=== PATIENT | female | born 1950 | race African-American/Black ===

== ENCOUNTER 2018-06-01 13:46 | Inpatient (IN) | payer OTHER ==
[~2018-06-01] VITALS: Ht 157.5 cm; Wt 77.3 kg
[2018-06-01 14:33] VITALS: BP 137/97
--- NOTE | 2018-06-01 17:03 | NUR ---
I attempted to call medicare ROSENDO Shipman [phone]. I received a voice message saying the office was closed.
[2018-06-01 17:05] LABS: ABSOLUTE NEUTROPHILS 3.9 thou/uL (1.4-8.2); BASOPHILS 0.6 % (0.0-2.0); EOSINOPHILS 1.2 % (0.0-3.0); HEMATOCRIT 42.8 % (37.0-47.0); HEMOGLOBIN 14.4 gm/dL (12.0-15.0); LYMPHOCYTES 31.4 % (24.0-44.0); MCH 31.5 pg (26.0-34.0); MCHC 33.5 g/dL (28.0-37.0); MONOCYTES 7.1 % (1.0-8.0); PLATELET COUNT 290 thou/uL (150-400); POLYS 59.7 % (36.0-66.0); RBC 4.56 mil/uL (4.20-5.00); RDW 13.4 % (10.5-14.5); WBC 6.6 thou/uL (4.0-11.0)
[2018-06-01 17:19] LABS: ALBUMIN 3.6 g/dL (3.4-5.0); CALCIUM 8.9 mg/dL (8.5-10.1); CREATININE 1.1 mg/dL (0.6-1.0); MAGNESIUM 2.4 mg/dL (1.8-2.4); POTASSIUM 3.2 mmol/L (3.5-5.1); TOTAL BILIRUBIN 0.4 mg/dL (<0.1-1.0); TOTAL PROTEIN 7.5 g/dL (6.4-8.2)
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
[2018-06-01 17:45] LABS: TSH 0.408 uIU/mL (0.358-3.740)
[2018-06-01 21:18] VITALS: BP 149/74
--- NOTE | 2018-06-01 21:51 | NUR ---
ASSUMED CARE OF PATIENT AT 1915 AFTER VERBAL REPORT PROVIDED BY OUTGOING RN. INTRODUCED SELF TO PATIENT AND ASSESSED NEEDS. PROVIDED APPLE JUICE AT BEDSIDE FOR HYDRATION NEEDS. PRESENTS IRRITABLE, CURSING AT STAFF, YELLING FROM HOSPITAL BED, CALLING STAFF NAMES AT TIMES, "THOSE BITCHES". APPEARS DELUSIONAL, MAKING SEVERAL STATMENTS OF PEOPLE, "STEALING MY MONEY THAT WAS IN MY BRA". POSSIBLE VISUAL HALLUCINATIONS MAKING SEVERAL STATEMENTS OF "THEY JUST CAME IN MY ROOM. DID YOU SEE THEM?" VERBALLY DENIES CURRENT VISUAL HALLUCINATIONS, SUICIDAL IDEATIONS STATING "I LOVE GOD AND MINE". POSSIBLE HOMICIDAL IDEATIONS STATING "I WILL GUT WHOEVER TRIES TO TAKE FROM ME", WHILE DOING A SLICING MOTION UPWARD. RETIREMENT AND SHORT TERM MEMORY IMPAIRED, PATIENT REPEATS THE SAME QUESTIONS WITHIN A FEW MINUTES OF ASKING THEM. LABILE WITH PERIODS OF VERBAL AGITATION TO PERIODS OF SMILING WITH AND SPEAKING TO STAFF APPROPRIATELY. PER REPORT PATIENT HAS NO SKIN ISSUES AND IS CONTINENT WITH BOWEL AND BLADDER. FALL RISK IS HIGH AND ASSIST X 1 WITH WHEELCHAIR FOR AMBULATION. PATIENT HAS A CANE THAT IS LOCKED WITH HER BELONGINGS FOR STAFF SAFETY. PER TRANSFER PAPERWORK PATIENT HAS A HISTORY OF CHRONIC BACK PAIN AND TAKES NORCO 5/325MG PO Q SIX HOURS PRN FOR PAIN. PT REPORTS BACK PAIN "HURTS LIKE HELL" WITH NO NUMERCIAL NUMBER PROVIDED. FACIAL GRIMACING NOTED WHEN MOVING IN BED. NO CURRENT ORDERS FOR PAIN MEDICATIONS AT THE TIME OF ASSESSMENT, CONTACTED , VIA CELL PHONE, PROVIDED REPORT ON PATIENTS PAIN, NICOTINE REPLACEMENT PER PATIENT REQUEST, AND DNR ORDERS PER TRANSFER PAPERWORK. NEW ORDERS RECEIVED FOR NICOTINE REPLACEMENT STARTING IMMEDIATELY PER PATIENT REQUESTS, ADDITIONAL DOSE OF 50MG SEROQUEL x 1 TO ASSIST WITH CURRENT AGITAITON, DELUSIONS AND SLEEP, AND NORCO 5/325MG x 1 NOW FOR PAIN. CON[facility]ED [facility] FOR COPIES OF DNR PAPERWORK, POA AND ASSESSMENT ON PATIENTS PAIN MEDICATION HISTORY. AWAITING COPIES OF PAPERWORK TO BE SENT VIA FAX. ORDER RECEIVED FROM DR. MOONEY FOR DNR DURING ANY MEDICAL CODE, ORDER READ BACK AND DICTATED. HYPERTENSION THIS EVENING WITH SCHEDULED HTN MEDICATION ADMINISTERED, SEE ORDER. VERBALLY DENIES ANY SOA, HEADACHE, OR ANY ADDITIONAL UNMET NEEDS. ALERT AND ORIENTED TO SELF ONLY. WILL CONTINUE TO MONITOR PT PER PHYSICIANS ORDERS AND FOR ANY ADDITIONAL UNMET NEEDS. ATTEMPTED TO CONTACT DPOA, SUDEEP POSADA, TO RECEIVE VERBAL CONSENT FOR ADMISSION. VOICEMAIL LEFT AND WILL FOLLOW UP.
--- NOTE | 2018-06-02 02:05 | NUR ---
PT HEARD YELLING IN BED FROM NURSES STATION STATING "GET OUT OF HERE AND CLOSE THE DAMN DOOR". THIS NURSE CHECKED ON PATIENT IN ROOM, LAYING IN BED WITH EYES OPEN, SPEAKING TO UNSEEN OTHERS IN ROOM, STATING "I AM TALKING TO MY SON AND TRYING TO SLEEP". EYES REMAINED CLOSED DURING ASSESSMENT WITH SOFT SPOKEN SLIGHTLY SLURRED SPEECH. NO SIGNS OF DISTRESS REPORTED OR ASSESSED. APPEARS TO BE RESTING PEACEFULLY WITH NO CURRENT SIGNS OF DISTRESS OBSERVED OR REPORTED. RR EVEN AND UNLABORED. WILL CONTINUE TO MONITOR CLOSELY PER PHYSICIAN ORDERS FOR SAFETY AND ANY ADDITIONAL UNMET NEEDS. CONTINUES WITH Q 15 MINUTE ROUNDS PER ORDER. CONTACTED [facility] AND SPOKE TO DANIEL, CURRENT NURSE AT [facility]. .
--- NOTE | 2018-06-02 05:00 | NUR ---
PT HAD A GOOD SHIFT, SLEEPING WELL OVERNIGHT, AFTER ADMINISTRATION OF SEROQUEL PER PHYSICIANS ORDER, SEE MAR. AWOKE ONLY ONCE DUE TO A/V HALLUCINATIONS STATING "I AM TALKING TO MY SON AND HE NEEDS TO SHUT MY DOOR". NO REPORTS OR OBSERVATIONS OF ANY STRUGGLES GETTING BACK TO SLEEP. NURSE PRACTITIONER Clara ORTIZ PROVIDED REPORT ON HYPOKALEMIA OF 3.2, SEE LABS, AND NEW ORDER RECEIVED FOR 40 MEQ POTASSIUM PO x 1 DOSE, ORDER REPEATED, DICTATED, AND VERIFIED PER POLICY. WILL CONTINUE TO MONITOR PT CLOSELY FOR SAFELY, Q 15 MINUTES, PER PHYSICIANS ORDERS, FOR SAFETY AND ANY ADDITIONAL UNMET NEEDS.
--- NOTE | 2018-06-02 08:22 | NUR ---
ASSUMED CARE OF PATIENT AT 0715 A.M. PATIENT LYING IN BED, SUPINE POSITION, RESTING QUIETLY WITH EYES CLOSED. NO BEHAVIOR DISCREPANCIES AT THIS TIME. CONTINUE TO MONITOR.
[2018-06-02 11:16] VITALS: BP 128/77
--- NOTE | 2018-06-02 12:10 | NUR ---
NEW ORDER AT APPROXIMATELY 1040 AM: NURSING STAFF TO REMOVE NECK SCARF FROM PATIENT FOR SAFETY REASONS.
--- NOTE | 2018-06-02 15:52 | NUR ---
Pt is ia 68 year old who was referred to [facility] from [facility] due to visual hallucinations and aggressive behaviors. Pt was not coherent to complete psychosocial assessement and collateral information was obtained from her daughter, Frederick who is also her DPOA. Frederick spoke with SW over the phone as nurse Isabella was also present and she gave verbal consent to treat her mother. ANGEL provided Frederick with our fax number to fax DPOA document for pt record. Frederick agreed that she will follow through as discussed. Frederick acted on Pt's behalf and completed assessement with SW over the phone. Frederick reported that Pt has been having some issues at the care home. She can be really aggressive at times. Horacevictoriano reported that Pt was taken to [facility] (either end of last year or earlier this year) after havisng severe visual hallucinations. Pt was monitored for four days and was discharged back to the care home. Frederick stated that Pt was diagnosed with demantia/Alzheimer by her primary care physician in 2014, however, Pt has never receive outpatient treatment for mental health. Pt also has a history of marijuiana and alcohol use, per Frederick and still has desire to use. Horacevictoriano indicated that Pt's sisters will be involved in her treatment plan as she recently moved to [place] and will not be present to attend meeting. She however, stated that she will be in communication with staff as needed to provive necrssary information. ANGEL will continue to monitor and assess pt for furnther needs during her hospitalization.
--- NOTE | 2018-06-02 15:55 | NUR ---
PATIENT WAS MOVED TO ROOM 521A RT PATIENT HAVING RIGHT SIDED ACCESS TO GRAB BAR TO STOOL AND SINK.
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
--- NOTE | 2018-06-02 16:18 | NUR ---
Cristian attempted to contact Pt insurance at 9:40 Am and the message stated the office is currently closed.CRISTIAN contacted group home at [phone] and spoke with Alicia and another staff requesting Pt's physical history per Dr. Ramachandran request. CRISTIAN provided our fax number to fax the requested information when ready.
--- NOTE | 2018-06-02 17:41 | NUR ---
NOTE: PATIENT HAD REFUSED NICOTINE PATCH AT 0900, STATED THAT SHE HAD NO PROBLEM WITH NEEDING NICOTINE AT THAT TIME. HOWEVER, LATE IN THE AFTERNOON AROUND 1715, PATIENT BECAME INCREASINGLY VERBALLY AGITATED RE: NOT BEING ABLE TO SMOKE. SHE ACCEPTED NICOTINE PATCH AT THAT TIME (NURSE CONTACTED PHAARMACY, WHO ACTIVATED ORDER AGAIN SO THAT IT COOULD BE APPLIED.) Emelia DE LA ROSA, REPORTED TO NURSE THAT PATIENT JUST STATED TO HER THAT NICOTINE PATCH HAS MADE HER HALLICUNATE IN THE PAST. REPORTED TO Gi.Tanmay THAT NURSE HAD NOT PLACED ON HER YET, WHICH WAS NOT ACCURATE. NICOTINE PATCH IS IN PLACE ON PATIENT'S RIGHT POSTERIOR NECK.
[2018-06-02 20:18] VITALS: BP 146/81
[2018-06-02 20:34] LABS: URINE BILIRUBIN NEGATIVE (Negative); URINE BLOOD NEGATIVE (Negative); URINE CLARITY CLEAR; URINE COLOR YELLOW; URINE GLUCOSE-RANDOM* NEGATIVE (Negative); URINE KETONES NEGATIVE (Negative); URINE LEUKOCYTES-REFLEX 1+ (Negative); URINE NITRITE-REFLEX NEGATIVE (Negative); URINE PROTEIN (DIPSTICK) NEGATIVE (Negative); URINE UROBILINOGEN 0.2 E.U./dl (0.2-1.0)
[2018-06-02 20:39] LABS: AMP/METHAMP Negative (Negative); BARBITURATES Negative (Negative); BENZODIAZEPINES Negative (Negative); COCAINE Negative (Negative); METHADONE Negative (Negative); OPIATES Negative (Negative); PCP Negative (Negative)
[2018-06-02 20:55] LABS: SQUAMOUS 0-3 Few /LPF (0-3)
[2018-06-02 20:56] LABS: BACTERIA-REFLEX None Seen /HPF (None Seen); CASTS None Seen /LPF (None Seen); CRYSTALS None Seen /LPF (None Seen); URINE RBC 0-2 Rare /HPF (0-2); URINE WBC-REFLEX 0-5 Rare /HPF (0-5)
--- NOTE | 2018-06-03 04:46 | NUR ---
RESUMED PATIENT CARE 06/02/2018 AT APPROXIMATELY 0715. RECEIVED VERBAL REPORT FROM VICTORIANO LOCK. INTRODUCED SELF TO THE PATIENT AND ASSESSED NEEDS. PATIENT REPORTS "I AM FREEZING". PROVIDED PATIENT WITH WARMED BLANKETS AND PATIENT WAS VERY HAPPY, SMILING, AND SINGING TO THE NURSE AND THE NURSES AID THIS MORNING. PT ASSISTED OUT TO THE DAY AREA WHERE , i UNDERSTAND THAT"
--- NOTE | 2018-06-03 06:00 | NUR ---
ASSUMED PATIENT CARE 06/02/18 AT APPROXIMATELY 1915. RECEIVED VERBAL REPORT FROM VICTORIANO LOCK. NOTIFIED PATIENT OF SHIFT CHANGE, INTRODUCED MYSELF AND ESTRELLA JERRY TO PATIENT. PRESENTS ALERT AND ORIENTED TO SELF AND SITUATION AT TIMES. THOUGHTS SEEMED TO BE MORE CLEAR LAST hs AND THROUGHOUT THE OVERNIGHT WITH PATIENT MAKING SEVERAL STATEMENTS "AM i HERE BECAUSE OF THE HALLUCINATIONS. THAT WAS SO SCARY." APPEARANCE IS GOOD, RECEIVED SPONGE BATH 06/02/18 IN THE EVENING. APPETITE IS GOOD CONSUMING ALL OF HER EVENING SNACK AND CONSUMING WATER WITH NO ICE DUE TO TEETH SENSITIVE TO COLD. VERBALLY DENIES CURRENT PAIN STATING "I FEEL GREAT. I DON'T EVEN NEED A CIGARETTE". REFUSED TO REMOVE NICTOINE PATCH PRIOR TO BED STATING "I NEED THIS PAPA". MEDICATION COMPLIANT WITH SCHEDULED HS MEDICATIONS. NEW MEDICATION DEPAKOTE 750MG ORDERED LAST HS. CONTACTED PHARMACIST DUE TO HEPATITIS C DIAGNOSIS, AGE AND FIRST TIME DOSE AMOUNT IS HIGH. DR. MOONEY ORDERED TO CONTINUE WITH SCHEDULED DOSAGE OF DEPAKOTE AND MONITOR PT FOR ANY SIDE EFFECTS. PATIENT COMPLIANT WITH SCHEDULED HS MEDICATIONS. NO OUTBURSTS THIS SHIFT. IMPULSIVE. EASILY VERBALLY REDIRECTABLE TO ACTIVITES. LAST BOWEL MOVEMENT PER REPORT 06/02/18 LARGE NORMAL CONSISTENCY. THROUGHOUT THE EVENING HER CONFUSION SEEMED TO INCREASE. EASILY REDIRECTABLE AND ORIENTED TO ROOM AND LOCATION. EFFECTIVE FOR SHORT PERIODS WITH FREQUENT REMINDERS AND REORIENTATION NEEDED. THIS MORNING ON APPROXIMATELY 0515 PATIENT ATTEMPTED TO AMBULATE OUT OF BED WITH REPORTS OF FEELING "REALLY STIFF". REQUIRED MODERATE TO MAX ASSIST x 1 PATIENT REPORTS DIFFICULTY MOVING LEGS, SEEMED TO BE SHUFFLING HER FEET AND STIFF. VERBALLY DENIES CHEST PAIN AND OR DISCOMFORT. NO MORE CONFUSION OBSERVED SINCE LAST HS. CONTACTED PHARMACIST AND NOTIFIED OF NEW SIDE EFFECT. COULD POSSIBLY BE EPS SYMPTOMS RELATED TO DEPAKOTE. WILL NOTIFY PHYSICIAN OF SYMPTOMS. VERBALLY DNEIES ANY FURTHER NEEDS AT THIS TIME. HELD MORNING DOSE OF GABAPENTIN DUE TO FEELINGS OF STIFFNESS AND "REALLY FEELING TIRED".
[2018-06-03 07:52] VITALS: BP 130/78
--- NOTE | 2018-06-03 07:53 | NUR ---
RECEIVED PT APPROX 0700. PT A/O/CALM AND APPROPRIATE THIS AM. DENIES PAIN WHEN ASKED. NO NOTED SOA. PT IN DINING ROOM WITH THERAPIST AT THIS TIME. WILL CONT. TO MONITOR.
--- NOTE | 2018-06-03 08:33 | NUR ---
MEDICATIONS GIVEN ORDERED- PT TOLERATED WELL. REFUSED MIRALAX THIS AM STATED "I DON'T WANT TO HAVE DIARRHEA, IM PRETTY REGULAR". PT RESTING IN WC AT THIS TIME APPEARS COMFORTABLE/CALM. DENIES NEEDS AT THIS TIME. WILL CONT. TO MONITOR.
--- NOTE | 2018-06-03 09:43 | NUR ---
PT RESTING IN BED AT THIS TIME. PLEASANT AND COOPERATIVE WITH CARES. BED ALARM ON. WILL CONT. TO MONITOR.
--- NOTE | 2018-06-03 10:16 | NUR ---
PT BACK IN DINING ROOM AT THIS TIME. SINGING AND LISTENING TO MUSIC.
--- NOTE | 2018-06-03 13:27 | NUR ---
PT IN DINING ROOM AT THIS TIME. ATE 100% OF LUNCH. NOTED AGITATION AT TIMES LOOKING FOR HER MONEY. NOTED PT BEING FORGETFUL AT TIMES WELL. REDIRECTABLE. WILL CONT. TO MONITOR.
--- NOTE | 2018-06-03 14:11 | NUR ---
ANGEL met with Pt at bedside briefly this AM at 9:15-9:35 and socialized with her. Pt appeared to be in a good mood and asked SW where she was at. SW informed Pt that she was at [facility]. Pt stated that she wasn't aware she was even in the hospital. Pt reported that she is feeling better today and had a good day as well yesterday, but feeling sleepy and tired. Pt talked about her children and her sisters. Pt stated that they are very closed and had a lot of fun growing up and even when they got older before she got sick. Pt laughed while talking about family memories and stated that her sisters will stop by to check on her. SW reminded Pt that two of her sisters visisted her and that her daughter Frederick stated she will not be visiting due to her recent move to [place]. Pt nodded her head in agreement and stated "she's my baby". SW noticed that Pt was trying to keep her eyes open. ANGEL thanked Pt for the meeting and reminded her that SW will be on shift most of the day should she have any questions, she can speak with SW later. SW left the room at the end of the meeting. SW will continue to monitor Pt and assess futher needs if necessasy.
--- NOTE | 2018-06-03 14:25 | NUR ---
PT IN ROOM AT THIS TIME. APPEARS RESTING WITH EYES CLOSED. BED ALARM ON.
[2018-06-03 17:00] VITALS: BP 147/80
--- NOTE | 2018-06-03 18:36 | NUR ---
PT MORE FORGETFUL THIS EVENING AND EASILY AGITATED. STATING SHE WANTS TO SMOKE. REDIRECTED/REORIENTED. PT UP WALKING WITH ACCESS DATABASE DEVELOPER AT THIS TIME. UNEVENTFUL DAY. WILL CONT. TO MONITOR.
[2018-06-03 19:22] VITALS: BP 160/95
--- NOTE | 2018-06-03 19:25 | NUR ---
ASSUMED PATIENT CARE AT APPROXIMATELY 1900. PATIENT OUT OF BED TO COMMON AREA, IN WHEELCHAIR, WITH A IRRITABLE PRESENTATION, FROWNING, CURSING STATING "I NEED TO GET OUT OF THIS HELL HOLE. I DIDN'T WANT TO COME HERE TODAY". PT ORIENTED TO SELF ONLY, STATING "I AM AT THE STORE BY MY HOUSE OR THE [employer]". ATTEMPTED TO ORIENT PATIENT TO UNIT AND REASON FOR ADMISSION WITH SUCCESS FOR ONLY SHORT PERIODS OF TIME. PRESENTS MORE AGITATED AND CONFUSED THIS EVENING COMPARED TO YESTERDAY EVENING. NOT ABLE TO RECALL REASON FOR ADMISSION. REPORTS VISUAL HALLUCINATIONS STATING "WHERE DID THAT SISTER GO THAT WAS HERE EARLIER?" NO SISTER HAS BEEN ON THE UNIT AND PT HAD NO VISITORS PER REPORT. APPEARANCE IS SLIGHTLY UNKEMPT THIS EVENING, WEARING THE SAME CLOTHES SINCE YESTERDAY, ALSO SLEPT IN THE CLOTHES, AND WEARING HER RED KNITTED HAT WITH A STRAW IN HER EAR. ATTEMPTED TO PROVIDE HYGIENE CARE TO PATIENT INCLUDING CHANGING CLOTHES, ASSISTED SHOWER, AND ORAL HYGIENE WITHOUT SUCCESS PATIENT STATING "I SAID NO I DON'T AND WON'T. YOU ARE ANNOYING ME AND NEED TO JUST LEAVE ME ALONE". PER REPORT PATIENT HAS BEEN MEDICATION COMPLIANT WITH ALL MEDICATION THROUGHOUT THE MORNING AND AFTERNOON SHIFT. DIFFICULT TO VERBALLY REDIRECT, CURSING, POSTURING, DEMANDING TO LEAVE". CONTACTED PHYSICIAN PER PHONE AND PROVIDED REPORT ON PATIENTS CURRENT IRRITBILITY AND ESCALATION. NEW ORDER RECEIVED FOR ADDITIONAL SEROQUEL 25MG PO X 1 NOW. WILL CONTINUE TO MONITOR PT FOR EFFECTIVENESS OF MEDICATION.
--- NOTE | 2018-06-03 20:28 | NUR ---
PT IN DINING AREA POSTURING AT LINE REPAIRER TOWER CLARITZA STATING "GET THE FUCK OUT OF HERE. YOU ARE ANNOYING", WHILE HOLDING ONTO HER WALKER IN HER RIGHT HAND. ATTEMPTED TO PROVIDE THERAPEUTIC VERBAL REDIRECTION INCLUDING THERAPEUTIC PRESCENCE AND USE OF SILENCE, DISTRACTION AND ATTEMPTED TO ORIENT PATIENT TO SITUATION, WITHOUT SUCCESS, PATIENT BEGAN CURSING AND YELLING AT STAFF WHILE POSURING TOWARDS STAFF. PROVIDED STANDBY ASSIST FOR SAFETY WHILE KEEPING DISTANCE TO AVOID BEING HIT BY PATIENT. PT QUICKLY BECAME LESS AGRESSIVE AND AGITATED STATING SMILING AT THIS STAFF MEMBER. OFFERED PO MEDICATION AND PT WAS COMPLIANT STATING "SURE I WILL TAKE MY MEDICATIONS". APPLE JUICE PROVIDED PER REQUEST AND PATIENT CONSUMED 4OZ AND MEDICATION SWALLOWED WITHOUT ANY COUGHING OR PROBLEMS. PT ASSISTED TO SITTING DOWN IN CHAIR IN DAY ROOM. TELEVISION ON AND PROGRAMMED PER PATIENT REQUEST. REMAINS WITHIN LINE OF SIGHT TO ENSURE PATIENT SAFETY WITHOUT ESCALATING PATIENTS AGGRESSION WITH STAFF BEING VISUAL TO PATIENT AT THIS TIME. WILL CONTNUE TO PROVIDE INTERVENTIONS THAT ARE THERAPEUTIC AND CONTINUE TO KEEP THE PATIENT AND UNIT SAFE.
[2018-06-04 06:11] LABS: ALBUMIN 3.1 g/dL (3.4-5.0); CALCIUM 8.7 mg/dL (8.5-10.1); PHOSPHORUS 4.2 mg/dL (2.5-4.9); POTASSIUM 3.8 mmol/L (3.5-5.1)
--- NOTE | 2018-06-04 08:05 | NUR ---
ASSUMED CARE OF PT AROUND 714, ASKED FOR AN INTRO TO THE FLOOR, CALLED SECURITY AND PHARMACY FOR ACCESS, VISITING W/CLIENT, KNOWS HER BDAY, CHILDREN'S BDAY, BUT DIDN'T KNOW LOCATION OF WHERE SHE IS NOW. KNOWS NAME OF RESIDENCY. NO C/O AT THIS TIME OTHER THAN NEEDING ANOTHER BOWL OF CEREAL. KRISSY VINCENT WNL FOR HER FROM REVIEWING PRIOR VS. L SIDED WEAKNESS. GOOD APPETITE, ASKED FOR ORTHOSTATICS, WILL DO VS AGAIN LATER. ENCOURAGED HER TO ASK US FOR ANY NEEDS
--- NOTE | 2018-06-04 11:50 | NUR ---
Nutrition: assess d/t low sidra score. Pt admitted for psychosis, hx of Afib, schizoaffective disorder, HLD, HTN. Pt was very lethargic during visit, psych meds were recently changed. Per nursing, pt has a good appetite. No recent weight loss. Recommend to continue to encourge PO intake. If intake declines, may consider Ensure Max to provide adequate protein. Otherwise, consider low risk.
--- NOTE | 2018-06-04 17:20 | NUR ---
PT HAS HAD A CHANGE IN ORIENTATION/MOOD, DEMANDING TO SMOKE, THREATENED AIDE, WANTS TO LEAVE NOW, CALLED PHYSICIAN, REC ORDERS. TELLING SOMEONE ON THE PHONE SHE IS BEING HELD AGAINST HER WILL. ALTERNATIVELY WILL JUST CHAT ABOUT LIFE AND BE HUMOROUS, WILL CONTINUE TO MONITOR AND MEDICATE NEEDED
--- NOTE | 2018-06-04 17:55 | NUR ---
PT REFUSED ONE TIME SEROQUEL AND DEMANDED TO SMOKE AND FLIPPED OFF STAFF. OFFERED ICE CREAM OR YOGURT AND SHE BECAME POLITE ASKING FOR YOGURT. WATCHING TELEVISION W/REMOTE NEARBY
[2018-06-05 02:03] VITALS: BP 151/94
--- NOTE | 2018-06-05 13:14 | NUR ---
SW met with pt to discuss new diagnose of dementia. Pt stated that she understand that dementia has to do with the brain. She stated that she up in age where she forgetting. SW validated pt concerning input on dementia. SW educate the pt on coping skills when she becomes agitated or upset. Pt stated that she is willing to learn about coping skills. SW provided a worksheet on learning how to self de-escalate when becoming upset due to your memory does not allow you to remember. SW spoke with the pt concerning being discharge to a memory care unit. Pt stated that she does not want to be discharge back to [facility] due to racism and descrimination. SW validated pt concerning and stated that she will discuss with Frederick pt daughter and DPOA on finding another SNF or Memory Care unit. SW will follow-up with pt.
--- NOTE | 2018-06-05 14:42 | NUR ---
ASSUMED CARE OF PATIENT AT 0700. PATIENT LYING IN BED AT THAT TIME. SEVERAL BLANKETS COVERING PATIENT R/T ISSUES WITH HEATING SYSTEM. CONTINUE TO MONITOR.
[2018-06-05 16:56] VITALS: BP 120/84
[2018-06-05 21:01] VITALS: BP 143/85
[2018-06-06 09:28] VITALS: BP 148/77
--- NOTE | 2018-06-06 15:06 | NUR ---
ASSUMED PT CARE AT 0700H. PT ABLE TO VERBALIZE CONCERN. PT PLEASANT. PT ABLE TO DENY THOUGHTS OF HARMING SELF NOR ANYONE. PT STATES NO PAIN. PT STATES GOAL TO BE HAPPY. PT CURRENTLY IN BED AND CONTINUES TO BE MONITORED [id number] FOR SAFETY.
--- NOTE | 2018-06-06 15:50 | NUR ---
SW was approached by Kelly Drake concerning her visiting. ANGEL explained that that the DPOA has to be notified, and verification that she works at [facility] [employer]. ANGEL spoke with the DPOA Frederick and she stated that she does not want any visitor other then family. ANGEL will follow-up with nursing staff concerning visitation rights of the pt.
[2018-06-06 19:54] VITALS: BP 159/91
--- NOTE | 2018-06-07 04:00 | NUR ---
PATIENT RELAXED AND CORDIAL. IN BED MUCH OF THE EVENING. SCHEDULED MEDS GIVEN. PATIENT UP TO TOILET WITH ASSIST, BUT INSISTS ON BEING INDEPENDANT SHE CAN. SLEPT WELL.
--- NOTE | 2018-06-07 08:07 | NUR ---
pt alert xs 4 pleasant and coopertaive with care. took meds w/o difficulty nicotine patch applied as ordered. had bm this am.
[2018-06-07 08:10] VITALS: BP 126/80
--- NOTE | 2018-06-07 09:40 | NUR ---
PT IN DINING ROOM WORKING WITH [employer]. PT W/O BEHAVIOR ISSUES. PLEASANT AND COOPERATIVE.
--- NOTE | 2018-06-07 15:59 | NUR ---
pt is sleeping at this time. pt w/o pain or resp distress. ate lunch before nap.
--- NOTE | 2018-06-07 16:06 | NUR ---
ANGEL spoke with Franklin Tate, adminstrator for [facility] concerning discharge. Franklin stated that he would like the hospital to keep her and send to another facility concerning her aggression, and combatative towards staff. ANGEL explained that [facility] has stabilize her mood, behavior, and re-evaluate pt medication. ANGEL explained that pt needs to be on a memory care unit where she can recieved supervision for her dementia. ANGEL arranged that the facilty transport pt on June 08, 2018 at 11:00am. ANGEL will follow-up with pt BILL Mack concerning her been discharged to the facility.
[2018-06-07 17:01] VITALS: BP 136/65
[2018-06-07 19:26] VITALS: BP 127/86
--- NOTE | 2018-06-07 22:17 | NUR ---
pt presents with a flat, denies suicidal and homicidal ideations, needs one person assist with adls,uses wheelchair for ambulation, rates anxiety and depression as low,denies auditory and visual hallucinations, needs a lot of redirection,reports that she is looking foward to discharge,meds and meals compliant,good eye contact.
[2018-06-08 08:05] VITALS: BP 141/96
--- NOTE | 2018-06-08 08:05 | NUR ---
ASSUMED CARE OF PT AROUND 0715, A&0X3-4 YET ALSO PERIODS OF IMMEDIATE CONFUSION, WAS SURPRISED SHE MISSED AREN. PT PRESENTS, AT THIS TIME, IN HUMOROUS QUICK WITTED SPIRITS. CAN CHANGE IMMEDIATELY NICOLÁS REGARDING HER LACK OF SMOKING PRIVELEGES. ENCOURAGED HER TO CALL OUT TO US FOR ANY NEEDS. WORKS QUITE INDEPENDENTLY IN HER SELF CARE
[2018-06-08] MEDS ORDERED: ATORVASTATIN CA10 MG PO (08:47)
[2018-06-08] MEDS ORDERED: ACETAMINOPHEN325 M1 PO (08:49)
[2018-06-08] MEDS ORDERED: ADULT LOW DOSE81 MG PO (08:49)
[2018-06-08] MEDS ORDERED: SEROQUEL 25 MG25 M1 PO (08:50)
[2018-06-08] MEDS ORDERED: SEROQUEL 100 M100 M1 PO (08:50)
[2018-06-08] MEDS ORDERED: PEPCID20 MG PO (08:51)
[2018-06-08] MEDS ORDERED: CENTRUM SILVER1 EAC4 PO (08:52)
[2018-06-08] MEDS ORDERED: B-12500 MCG PO (08:53)
[2018-06-08] MEDS ORDERED: VITAMIN D5000 UNIT PO (08:53)
[2018-06-08] MEDS ORDERED: OLANZAPINE10 M2 PO (08:54)
[2018-06-08] MEDS ORDERED: DEPAKOTE ER250 MG PO (08:54)
[2018-06-08] MEDS ORDERED: NEURONTIN 300300 M1 PO (08:55)
[2018-06-08] MEDS ORDERED: LOPRESSOR50 PO (08:56)
[2018-06-08] MEDS ORDERED: AMLODIPINE BESY10 MG PO (08:57)
--- NOTE | 2018-06-08 11:04 | NUR ---
CALLED REPORT TO FACILITY, SPOKE W/COLBY, CLIENT READY AND BELONGINGS IN [place] WAITING TO BE GIVEN TO HER, TRANSFORMATION HERE FROM [facility] TO TRANSPORT PT. PACKET SENT
--- NOTE | 2018-06-08 14:20 | NUR ---
Patient Name: CHARO PAYNE Admission Date: 06/01/18 DISCHARGE PLAN: [facility] on June 08, 2018 Care Assessment: Pt was discharge to [facility]. Pt was diagnosed with dementia. ANGEL collaborated with Franklin Rincon adminstrator at [facility] concerning pt care. ANGEL explained that pt need to be on a memory care unit. Pt was re-evaluated on her medication. Dr. Ramachandran adjusted medicine Depakote for psychosis, and agitation. Level II Assessment: Dementia, Pyshosis with behavior disturbance Transportation: Pt was transported by the [facility] staff. Special Instructions/Notes: SW recommended pt to have a wander guard or moved to a memory care unit. ANGEL educated pt on coping skills, anger management, and [id number] if she become agitated with staff. DISCHARGE TO FACILITY: [facility] Facility: Memory Care Fax: Address: [address] [place] [address] Contact Name: Franklin Rincon PCP: JACINTA Psychiatrist: Dr. Ramachandran
--- NOTE | 2018-06-09 10:14 | D ---
[facility] [place] [address] DISCHARGE SUMMARY Name: CHARO PAYNE Room #: 521A-A [facility] IN M.R.#: [id number] Admission: 06/01/18 Attend Phys: Polo Ramachandran DO Discharge: 06/08/18 Date of : 54 Report #: [id number] THIS REPORT FOR: //name// CC: Polo Reyes [place] DATE OF SERVICE: 06/08/2018 CONSERVATION OR HERITAGE ARCHITECT FOR THIS ADMISSION: Hospitalist service, Iraj Gomez MD DISCHARGE DIAGNOSES: Major neurocognitive disorder secondary to multiple factors including cerebrovascular disease as well as likely Alzheimer's disease with behavioral disturbance, improved. The patient's comorbidities include hypertension, hyperlipidemia, chronic pain syndrome and psychosis, which was resolved during admission. 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 REASON FOR ADMISSION: Cursing, combativeness, agitation at the [facility]. HOSPITAL COURSE: The patient was admitted to the Geriatric Psychiatry Unit. Global medical and psychiatric evaluation was undertaken. There was no apparent deliriogenic process. The patient was not treated with a mood stabilizer or adequate dose of antipsychotic for symptomatology. She was initially instituted on quetiapine 25 mg q.12 hours. This was titrated throughout admission to 125 mg every 12 hours. Also, Depakote was instituted 750 mg on day 4 trough level with a blood level of 88. During the course of hospitalization, the patient quickly became cooperative, eating her meals, was not cursing, threatening, combative. She did make comments as if she was prejudistic against due to her race at the nursing facility and things like this. We did not find any significant substantiation for this. Her daughter lives in [facility] and she was contacted. The case was reviewed. The daughter was allegedly her DPOA, however, in the nursing facility daughter were able to do such paperwork. She was left a full code during the admission. Due to this reason, I do not believe the patient has capacity to make higher level decisions for healthcare living. She remained oriented to person, generally to place, not time. [facility] mental status exam was performed under strict scoring. She would have scored 9/30. She scored 11 at that time because she had error of numeral duplication, normal clock drawing. I do not see a role given her sums performance for a cognitive enhancer at this point. DISCHARGE DAY MENTAL STATUS EXAM: BP 141/96. Last temperature on 06/07/2018 was 36.7. Last pulse 67, respirations 18, O2 sat 96%. Laboratory tests this admission were generally within normal limits including EDS negative, urinalysis negative. [address] [address] DISCHARGE SUMMARY Name: CHARO PAYNE Room #: 521A-A [facility] IN M.R.#: [id number] Admission: 06/01/18 Attend Phys: Polo Ramachandran DO Discharge: 06/08/18 Date of : 54 Report #: [id number] MENTAL STATUS EXAMINATION: This is a well-developed, well-nourished black female with features of disability from residual effect of cerebrovascular accident including left foot, ankle weakness as well as claw hand feature on the left upper extremity. Attention intact. Concentration limited. Speech normal rate, normal tone. Thought process is linear and goal directed. Thought content, focus still not present, relative poverty of thought. Mood and affect were congruent, euthymic, deranged. Denied auditory, visual or tactile hallucinations. Denied suicidal intent or plan. Denied hopelessness, helplessness. Denied homicidal intent or plan. Memory not formally tested early on in the admission and was grossly impaired. Insight limited. Judgment limited. Fund of knowledge below average. DISCHARGE MEDICATIONS: Include atorvastatin 20 mg oral at bedtime for hyperlipidemia, metoprolol tartrate 50 mg twice daily for hypertension, amlodipine besylate 5 mg daily for hypertension, aspirin 81 mg daily for cardioprotection, acetaminophen 650 mg every 6 hours as needed for pain level 1-5, Depakote ER 750 mg oral daily at bedtime for mood stabilization, gabapentin 300 mg oral 3 times a day for chronic pain. This was reduced from 600 mg 3 times a day due to her renal function, olanzapine 2.5 mg oral every 6 hours as needed for psychosis, agitation, Seroquel 125 mg twice per day for psychosis, famotidine 20 mg oral twice a day for GI upset, vitamin B12 500 mcg oral daily supplementation, vitamin D3 with cholecalciferol 5000 international units daily, supplementation of multivitamin oral daily. The patient should be seen by [facility] primary care doctor within 2 weeks as well as psychiatrist in 14 days. She will require as well regular diet. DISCHARGE INSTRUCTIONS: May require 24/7 supervision. Encourage walking with her quad cane as tolerated. She does need assistance bathing. <ELECTRONICALLY SIGNED> By: Polo Ramachandran DO 06/09/18 [id number] Polo Ramachandran, /nt
== END 2018-06-08 11:20 | DRG 57 ==
LOC: SBH 13:46
PROVIDERS: Hospitalist; Nurse Practitioner; ADMIT Psychiatry & Neurology Psychiatry
DX: G30.9 Alzheimer's disease, unspecified (principal); F23 Brief psychotic disorder; N17.9 Acute kidney failure, unspecified; E87.0 Hyperosmolality and hypernatremia; F01.51 Vascular dementia, unspecified severity, with behavioral disturbance; F02.81 Dementia in other diseases classified elsewhere, unspecified severity, with behavioral disturbance; E78.5 Hyperlipidemia, unspecified; N18.9 Chronic kidney disease, unspecified; I48.91 Unspecified atrial fibrillation; E87.6 Hypokalemia; E53.8 Deficiency of other specified B group vitamins; I12.9 Hypertensive chronic kidney disease with stage 1 through stage 4 chronic kidney disease, or unspecified chronic kidney disease; G89.4 Chronic pain syndrome; Z82.49 Family history of ischemic heart disease and other diseases of the circulatory system; Z82.3 Family history of stroke; Z88.0 Allergy status to penicillin; Z86.19 Personal history of other infectious and parasitic diseases; Z86.73 Personal history of transient ischemic attack (TIA), and cerebral infarction without residual deficits; Z79.899 Other long term (current) drug therapy
CPT/HCPCS: 10880